=== PATIENT | male | born 1995 | race Caucasian/White ===

== ENCOUNTER 2018-12-08 18:03 | Emergency (ER) | payer OTHER ==
[~2018-12-08] VITALS: Ht 182.9 cm; Wt 74.8 kg
[2018-12-08 18:15] VITALS: BP 125/56
--- NOTE | 2018-12-08 19:28 | PHYS DOC ---
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 He states pain is intermittent, worse on certain movements to the ankle. He states he has not taken anything for his pain. (BETHANY SHEEHAN APRN) Review of Systems Review of Systems Constitutional: Denies fever or chills [] Musculoskeletal: Reports right ankle pain Integument: Denies rash or skin lesions [] Neurologic: Denies headache, focal weakness or sensory changes [] All other systems were reviewed and found to be within normal limits, except as documented in this note. (BETHANY SHEEHAN APRN) Allergies Allergies Allergies Coded Allergies Type Severity Reaction Last Updated Verified No Known Drug Allergies 12/08/18 No (DORENE DEMARCO DO) Physical Exam Physical Exam Constitutional: Well developed, well nourished, no acute distress, non-toxic appearance. [] Skin: Warm, dry, no erythema, no rash. [] Back: No tenderness, no CVA tenderness. [] Extremities: Right ankle with no obvious deformity, mild soft tissue swelling noted on the right lateral ankle. Tenderness on palpation of the right lateral ankle, full range of motion to the right ankle and toes. +2 right pedal pulse. Cap refill less than 2 seconds the right toes. Neurologic: Alert and oriented X 3, normal motor function, normal sensory function, no focal deficits noted. [] Psychologic: Affect normal, judgement normal, mood normal. [] (BETHANY SHEEHAN APRN) Current Patient Data Vital Signs Vital Signs Date Time Temp Pulse Resp B/P (MAP) Pulse Ox O2 Delivery O2 Flow Rate FiO2 12/08/18 18:15 98.3 82 16 125/56 (79) 99 Room Air 98.3 (DORENE DEMARCO DO) EKG EKG [] (BETHANY SHEEHAN APRN) Radiology/Procedures Radiology/Procedures [] (BETHANY SHEEHAN APRN) Radiology/Procedures PROCEDURE: ANKLE RIGHT 3V ANKLE RIGHT 3V History: TWISTED ANKLE TWO DAYS AGO ON THE STEPS, PAIN ON THE MEDIAL SIDE Comparison: None. Findings: 3 views right ankle are submitted. There is soft tissue swelling. No acute fracture or dislocation is identified. Impression: 1. No acute osseous abnormality is identified. There is soft tissue swelling. Electronically signed by: Charli Hurtado MD (12/08/2018 7:41 PM) [facility] (DORENE DEMARCO DO) Course & Med Decision Making Course & Med Decision Making Pertinent Labs and Imaging studies reviewed. (See chart for details) This is a 23-year-old male patient presenting to the ED today with right ankle pain, right ankle x-rays interpreted by Dr. Demarco are negative for any acute findings. Patient was provided Genaro bandage in the ED which he applied himself. Neurovascular exam post-Genaro wrap application is normal. Ice and elevation encouraged. OTC pain relievers. Follow-up workmancomp. (BETHANY SHEEHAN APRN) Dragon Disclaimer Dragon Disclaimer This electronic medical record was generated, in whole or in part, using a voice recognition dictation system. (BETHANY SHEEHAN APRN) Departure Departure Impression: Primary Impression: Right ankle sprain Disposition: HOME, SELF-CARE Condition: STABLE Referrals: NO PCP (PCP) GOSIA FONSECA II, MD Follow up with the workman comp doctor or the provided orthopedic doctor in one week Patient Instructions: Ankle Sprain, Acute, with Phase I Rehab-SportsMed Additional Instructions: You were evaluated in the emergency room for right ankle sprain. Ice and elevate the extremity. Use the Genaro bandage provided as needed and tolerated. Take [id number] pain relievers as needed. Follow-up with the workdalbo comp doctor or the provided orthopedic doctor in 1-2 weeks. Attending Signature Attending Signature I have reviewed the PA/[employer]IRCRA[employer]TER's note and plan of care. I was available for consultation as needed during the patient's visit in the emergency department. I agree with the clinical impression, plan, and disposition. (DORENE DEMARCO DO) Problem Qualifiers Primary Impression: Right ankle sprain Encounter type: initial encounter Involved ligament of ankle: unspecified ligament Qualified Codes: S93.401A - Sprain of unspecified ligament of right ankle, initial encounter BETHANY SHEEHAN APRN Dec 08, 2018 19:27 DORENE DEMARCO DO Dec 09, 2018 05:16
--- NOTE | 2018-12-08 19:44 | RAD ---
ANKLE RIGHT 3V History: TWISTED ANKLE TWO DAYS AGO ON THE STEPS, PAIN ON THE MEDIAL SIDE Comparison: None. Findings: 3 views right ankle are submitted. There is soft tissue swelling. No acute fracture or dislocation is identified. Impression: 1. No acute osseous abnormality is identified. There is soft tissue swelling. Electronically signed by: Charli Hurtado MD (12/08/2018 7:41 PM) [facility]
== END 2018-12-08 19:38 | disposition home or self-care (01) ==
LOC: ER 18:03
DX: S93.401A Sprain of unspecified ligament of right ankle, initial encounter (principal); X50.9XXA Other and unspecified overexertion or strenuous movements or postures, initial encounter; Y93.01 Activity, walking, marching and hiking; Y92.69 Other specified industrial and construction area as the place of occurrence of the external cause; Y99.0 Civilian activity done for income or pay
CPT/HCPCS: 73610; 99283